=== PATIENT | male | born 1945 | race Caucasian/White ===

== ENCOUNTER 2018-12-12 09:13 | Outpatient (CLI) | payer MEDICARE ==
[~2018-12-12 09:13] MED LIST: AMLO10TA8 PO; INSU100I29; INSU100V5; LOVA40TA2 PO; OMEP-110 PO; [UNRECOGNIZED DRUG - OTHER] PO
[2018-12-12] MEDS ORDERED: OMNIPAQUE 350 MG/ML, 150 ML BOTTLE ONE (14:17)
== END 2018-12-12 23:59 | disposition home or self-care (01) ==
LOC: CFH 09:13
PROVIDERS: ATTEND Nurse Practitioner
DX: C61 Malignant neoplasm of prostate (principal); N20.0 Calculus of kidney
CPT/HCPCS: 74178; 78306; 82565; A9503; Q9967

== ENCOUNTER 2021-01-20 07:46 | Observation (INO) | payer MEDICARE ==
[~2021-01-20] VITALS: Ht 180.3 cm; Wt 116.7 kg
[~2021-01-20 07:46] MED LIST changes: +AMLO-211 PO; -AMLO10TA8 PO; -INSU100I29; +INSU100I29 SQ; -INSU100V5; +INSU100V5 SQ
[2021-01-20] MEDS ORDERED: SODIUM CHLORIDE 0.9% 1,000 ML IV SCH (08:00)
[2021-01-20] MEDS ORDERED: TAMS-11 PO (08:15)
[2021-01-20] MEDS ORDERED: OMEP-110 PO (08:15)
[2021-01-20] MEDS ORDERED: TRAN4TAB24 PO (08:15)
[2021-01-20] MEDS ORDERED: Vitamin C PO (08:19)
[2021-01-20] MEDS ORDERED: Vitamin B12 PO (08:19)
[2021-01-20] MEDS ORDERED: CHOL10003 PO (08:19)
[2021-01-20] MEDS ORDERED: Vitamin B6 PO (08:19)
[2021-01-20] MEDS ORDERED: ASPI81TA45 PO (08:19)
[2021-01-20 08:25] VITALS: BP 148/77
[2021-01-20] MEDS ORDERED: PLEASE ENTER HEIGHT AND WEIGHT MC SCH (08:30)
[2021-01-20 08:40] LABS: BASOPHILS % (AUTO) 0 % (0-1); EOSINOPHILS % (AUTO) 1 % (1-7); LYMPHOCYTES % (AUTO) 9 % (22-44); MEAN CORPUSCULAR HEMOGLOBIN 32.7 pg (27.5-34.5); MEAN CORPUSCULAR HGB CONC 34.3 g/dL (33.2-36.2); MEAN PLATELET VOLUME 7.4 fL (7.4-10.4); MONOCYTES % (AUTO) 7 % (2-9); NEUTROPHILS % (AUTO) 83 % (42-75); PLATELET COUNT 158 x10^3/uL (130-400); RED BLOOD COUNT 4.42 x10^6/uL (4.38-5.82); RED CELL DISTRIBUTION WIDTH 12.8 % (9.4-14.8)
[2021-01-20 08:47] LABS: ANION GAP 8 mmol/L (5-15); CALCIUM 9.4 mg/dL (8.5-10.1); CHLORIDE 107 mmol/L (98-107); CREATININE 1.28 mg/dL (0.7-1.3)
[2021-01-20] MEDS ORDERED: MIDAZOLAM 1 MG/ML, 2ML ONE ×2 (08:52→09:52)
[2021-01-20] MEDS ORDERED: HEPARIN 1,000 UNITS/ML, 10ML ONE (08:53)
[2021-01-20] MEDS ORDERED: LIDOCAINE-MPF 1%, 5ML ONE (08:53)
[2021-01-20] MEDS ORDERED: VERAPAMIL 2.5 MG/ML, 2ML ONE (08:53)
[2021-01-20] MEDS ORDERED: FENTANYL PF 100 MCG/2ML ONE (08:53)
[2021-01-20] MEDS ORDERED: BIVALIRUDIN 250 MG ONE (09:52)
[2021-01-20] MEDS ORDERED: TICAGRELOR 90 MG TABLET ONE (09:52)
[2021-01-20] MEDS: ASPIRIN 81 MG TABLET EC PO SCH (10:30)
[2021-01-20] MEDS ORDERED: BIVALIRUDIN 250 MG in SODIUM CHLORIDE 0.9% 50 ML IV SCH (11:00)
[2021-01-20] MEDS: SODIUM CHLORIDE 0.9% 1,000 ML IV SCH ×2 (11:00→19:00)
[2021-01-20] MEDS ORDERED: ASPIRIN 81 MG TABLET EC PO SCH (11:00)
[2021-01-20] MEDS: INSULIN REGULAR 100 UNITS/ML, 3ML VIAL SQ-INSULIN SCH ×2 (11:22→17:35)
[2021-01-20 13:44] VITALS: BP 121/75
[2021-01-20] MEDS: TICAGRELOR 90 MG TABLET PO SCH (19:57)
[2021-01-20 20:31] VITALS: BP 146/78
[2021-01-20] MEDS ORDERED: ATORVASTATIN 40 MG TABLET PO SCH (21:00)
[2021-01-20] MEDS ORDERED: INSULIN GLARGINE 100 UNITS/ML, PEN SQ-INSULIN SCH (21:00)
[2021-01-21 00:36] VITALS: BP 129/73
[2021-01-21] MEDS: SODIUM CHLORIDE 0.9% 1,000 ML IV SCH (01:44)
[2021-01-21 06:08] LABS: CHLORIDE 106 mmol/L (98-107)
[2021-01-21 06:19] LABS: ANION GAP 10 mmol/L (5-15); CALCIUM 9.1 mg/dL (8.5-10.1); CREATININE 1.36 mg/dL (0.7-1.3)
[2021-01-21 07:27] VITALS: BP 148/80
[2021-01-21] MEDS ORDERED: TICA90TA PO (08:06)
[2021-01-21] MEDS ORDERED: ATOR40TA78 PO (08:06)
[2021-01-21] MEDS: INSULIN REGULAR 100 UNITS/ML, 3ML VIAL SQ-INSULIN SCH (08:29)
[2021-01-21] MEDS: ASPIRIN 81 MG TABLET EC PO SCH (08:29)
[2021-01-21] MEDS: TICAGRELOR 90 MG TABLET PO SCH (08:29)
[2021-01-21] MEDS ORDERED: TAMSULOSIN 0.4 MG CAP.ER.24H PO SCH (09:00)
[2021-01-21] MEDS ORDERED: OMEPRAZOLE 20 MG CAPSULE.DR PO SCH (09:00)
[2021-01-21] MEDS ORDERED: LOVASTATIN 40 MG TABLET PO SCH (09:00)
[2021-01-21] MEDS ORDERED: LISINOPRIL 40 MG TABLET PO SCH (09:00)
== END 2021-01-21 11:25 | disposition home or self-care (01) ==
LOC: CACL 07:46 → ORIP 10:32 → 5SO 12:47 → DCLOUNGE 01-21 11:15
PROVIDERS: ADMIT Internal Medicine Cardiovascular Disease; ATTEND Internal Medicine Cardiovascular Disease
DX: I35.0 Nonrheumatic aortic (valve) stenosis (principal); I11.0 Hypertensive heart disease with heart failure; I50.33 Acute on chronic diastolic (congestive) heart failure; M19.90 Unspecified osteoarthritis, unspecified site; J61 Pneumoconiosis due to asbestos and other mineral fibers; E11.9 Type 2 diabetes mellitus without complications; Z79.899 Other long term (current) drug therapy
CPT/HCPCS: 36415; 80048; 82962; 85025; 93458; 99156; 99157; C1725; C1769; C1874; C1887; C1894; C9600; G0378; J0583; J1644; J1815; J2250; J3010; Q9967

== ENCOUNTER → 2021-01-28 | Outpatient (CLI) | payer MEDICARE ==
[~2021-01-28] MED LIST changes: +ASPI81TA45 PO; +ATOR40TA78 PO; +CHOL10003 PO; +TAMS-11 PO; +TICA90TA PO; +TRAN4TAB24 PO; +VISIPAQUE 320 MG/ML, 150ML BOTTLE ONE; +Vitamin B12 PO; +Vitamin B6 PO; +Vitamin C PO
== END | disposition home or self-care (01) ==
LOC: CVU 09:14
PROVIDERS: ATTEND Internal Medicine Cardiovascular Disease
DX: I65.23 Occlusion and stenosis of bilateral carotid arteries (principal); I11.0 Hypertensive heart disease with heart failure; I50.33 Acute on chronic diastolic (congestive) heart failure; I35.0 Nonrheumatic aortic (valve) stenosis; G12.9 Spinal muscular atrophy, unspecified; N28.1 Cyst of kidney, acquired; J94.8 Other specified pleural conditions; N20.0 Calculus of kidney; E11.9 Type 2 diabetes mellitus without complications; Z95.4 Presence of other heart-valve replacement
CPT/HCPCS: 71275; 74174; 93880; Q9967

== ENCOUNTER 2021-03-23 11:17 | Outpatient (CLI) | payer MEDICARE ==
[~2021-03-23 11:17] MED LIST changes: +ACET325T26 PO; -VISIPAQUE 320 MG/ML, 150ML BOTTLE ONE
== END 2021-03-23 23:59 | disposition home or self-care (01) ==
LOC: CVU 11:17
PROVIDERS: ATTEND Internal Medicine Cardiovascular Disease
DX: Z01.810 Encounter for preprocedural cardiovascular examination (principal); I34.8 Other nonrheumatic mitral valve disorders; R06.02 Shortness of breath; I65.29 Occlusion and stenosis of unspecified carotid artery; I11.9 Hypertensive heart disease without heart failure
CPT/HCPCS: 93306